=== PATIENT | male | born 1955 | race Caucasian/White ===

== ENCOUNTER → 2017-10-28 | Outpatient (CLI) | payer OTHER ==
[~2017-10-28] MED LIST: CYC10 PO; HYDR-3140 PO; OMEP-218 PO; ONDA4TAB PO
--- NOTE | 2017-10-28 13:25 | RADIOLOGY IMAGING REPORT ---
FACILITY: [facility] - [place] PATIENT NAME: Thomas Taylor : 1955 MR: [id number] V: [id number] EXAM DATE: ORDERING PHYSICIAN: PEDRO JOHNSON TECHNOLOGIST: Location: [facility] - [place] Patient: Thomas Taylor : 1955 Visit/Account:[id number] Date of Sevice: 10/28/2017 Technique: CHEST PA AND LAT HISTORY: Bronchitis, pain and central chest Comparison studies: None FINDINGS: Mild central peribronchial thickening is noted. Metallic density overlying the right mid l luz elena is likely projectional. No pleural effusion. The cardiac silhouette is unremarkable. IMPRESSION: 1. Central peribronchial thickening consistent with bronchitis, asthma or tobacco usage. Report Dictated By: Marquis Freire DO at 10/28/2017 1:19 PM Report E-Signed By: Marquis Freire DO at 10/28/2017 1:21 PM WSN:[email or web address]
== END ==
LOC: RAD 12:41
PROVIDERS: ATTEND Family Medicine
DX: J40 Bronchitis, not specified as acute or chronic (principal)
CPT/HCPCS: 71046